=== PATIENT | male | born 1970 | race Caucasian/White ===

== ENCOUNTER 2016-12-29 14:26 | Emergency (ER) | payer OTHER ==
[2016-12-29] MEDS ORDERED: DEXAMETHASONE 10 MG/ML VIAL PO STA (15:33)
[2016-12-29] MEDS ORDERED: CYCLOBENZAPRINE 10 MG TABLET PO STA (15:33)
[2016-12-29] MEDS ORDERED: KETOROLAC 60 MG/2 ML VIAL IM STA (15:33)
--- NOTE | 2016-12-29 15:36 | ED Physician Documentation ---
PD HPI BACK PAIN - Stated complaint Stated Complaint: LOWER BACK INJURY - Chief complaint Chief Complaint: Back Pain - History obtained from History obtained from: Patient, Family - History of Present Illness Timing - onset: Today Timing - duration: Hours (8) Timing - details: Abrupt onset Pain level max: 8 Pain level now: 8 Location: Lower, Right, Left Quality: Pain, Spasm, Sharp, Similar to prior episodes Associated symptoms: No: Fever, Weakness, Numbness, Incontinent of urine, Unable to urinate, Hematuria, Incontinent of stool Improves with: Rest, Meds (motrin at 0700) Worsened by: Movement Contributing factors: No: Trauma, Anticoagulated, Cancer, IVDA Similar symptoms before: Diagnosis (chronic back pain) Recently seen: Not recently seen - Additional information Additional information: states bent over this am and had sharp pain is his lower back. No numbness, tingling, incontinence. Pain increased when his motrin wore off this am. Review of Systems Ten Systems: 10 systems reviewed and negative Constitutional: denies: Fever, Chills Ears: denies: Ear pain Nose: denies: Rhinorrhea / runny nose, Congestion GI: denies: Abdominal Pain, Nausea, Vomiting, Diarrhea Skin: denies: Rash Musculoskeletal: denies: Neck pain Neurologic: denies: Focal weakness, Numbness, Headache, Head injury, LOC PD PAST MEDICAL HISTORY - Past Medical History Past Medical History: Yes GI: GERD Musculoskeletal: Chronic back pain - Past Surgical History Past Surgical History: No - Present Medications Home Medications: Ambulatory Orders Medication Instructions Recorded Confirmed Cyclobenzaprine [Flexeril] 10 mg PO TID PRN #20 tablet 12/29/16 Esomeprazole Magnesium [Nexium] 1 tab DAILY 12/29/16 12/29/16 Hydrocodone/Acetaminophen 1 - 2 each PO Q6H PRN #14 tablet 12/29/16 [Hydrocodon-Acetaminophen 5-325] - Allergies Allergies/Adverse Reactions: Allergies Allergy/AdvReac Type Severity Reaction Status Date / Time No Known Drug Allergies Allergy Verified 12/29/16 14:35 PD ED PE NORMAL - Vitals Vital signs reviewed: Yes - General General: Alert and oriented X 3, No acute distress, Well developed/nourished - HEENT HEENT: Moist mucous membranes - Neck Neck: Supple, no meningeal sign, No bony TTP - Cardiac Cardiac: RRR, Strong equal pulses - Respiratory Respiratory: No respiratory distress, Clear bilaterally - Abdomen Abdomen: Soft, Non tender, Non distended - Back Back: No spinal TTP, Other (paraspinal spasm, low lumbar. no midline tenderness to palpation or percussion) - Derm Derm: Warm and dry - Extremities Extremities: Other (normal bilateral lower extremity patellar and ankle jerk reflexes. Normal great toe extension bilaterally) - Neuro Neuro: Alert and oriented X 3, No motor deficit, No sensory deficit - Psych Psych: Normal mood, Normal affect Results - Vitals Vitals: Vital Signs - 24 hr 12/29/16 12/29/16 12/29/16 14:34 18:55 19:20 Temperature 36.3 C L Heart Rate 93 78 75 Respiratory 18 20 18 Rate Blood Pressure 124/72 O2 Saturation 97 98 97 12/29/16 19:36 Temperature 36.0 C L Heart Rate 70 Respiratory 16 Rate Blood Pressure 112/73 O2 Saturation 100 Oxygen O2 Source Room air - Rads (name of study) L spine xray Radiology: Prelim report reviewed, EMP read contemporaneously, See rad report ( No acute bony abnormality. Old mild wedging and degenerative disk disease thoracolumbar junction. Mild degenerative changes L4-L5 and L5-S1. ) PD MEDICAL DECISION MAKING - ED course Complexity details: reviewed results, re-evaluated patient, considered differential (no cauda equina, no spinal epidural abscess, no fracture, no aortic dissection or evidence of aneursym rupture), d/w patient, d/w family ED course: Patient is a 46-year-old gentleman who presents to the emergency department with acute onset of low back pain. His pain was not improving as expected with pain medication the emergency department, therefore an x-ray was performed which reveals no acute abnormalities. He was then given a dose of morphine and felt better. Will prescribe pain medication for home as well as muscle relaxants. No evidence of cauda equina, epidural abscess or fracture. Patient counseled regarding signs and symptoms for which I believe and urgent re- evaluation would be necessary. Patient with good understanding of and agreement to plan and is comfortable going home at this time This document was made in part using voice recognition software. While efforts are made to proofread this document, sound alike and grammatical errors may occur. Departure - Departure Disposition: 01 Home, Self Care Clinical Impression: Low back strain Qualifiers: Encounter type: initial encounter Qualified Code(s): S39.012A - Strain of muscle, fascia and tendon of lower back, initial encounter Condition: Good Instructions: ED Sprain Strain Lumbar Follow-Up: NURIS JESUS [Primary Care Provider] - Within 3 Days Prescriptions: Cyclobenzaprine [Flexeril] 10 mg PO TID PRN #20 tablet PRN Reason: Spasms Hydrocodone/Acetaminophen [Hydrocodon-Acetaminophen 5-325] 1 - 2 each PO Q6H PRN #14 tablet PRN Reason: pain Comments: Return if you worsen. This should improve over the next few days and if it is not improving your doctor may choose to order an xray or MRI. Do not drink alcohol or drive while on narcotic pain medicine. Note that many narcotic pain relievers also contain tylenol/acetaminophen. Please ensure that your total dose of acetaminophen from all sources does not exceed 3 grams (3000mg) per day. You may constipated on this medication, take a stool softener such as "Colace" twice a day while you are on it. Also recommend a lyvk-brd-kjuywjb laxative such as senna or MiraLAX any day that you do not have a bowel movement. If you received narcotic pain medication in the emergency department, do not drive or operate machinery for the next 24 hours. Discharge Date/Time: 12/29/16 19:36
[2016-12-29] MEDS ORDERED: DEXAMETHASONE 10 MG/ML VIAL ONE (15:48)
[2016-12-29] MEDS ORDERED: KETOROLAC 60 MG/2 ML VIAL ONE (15:48)
[2016-12-29] MEDS ORDERED: CHERRY SYRUP 10 ML UDC PO ONE (15:48)
[2016-12-29] MEDS ORDERED: HYDROcod/ACETAM 5/325 MG TABLET PO STA (16:27)
[2016-12-29] MEDS ORDERED: diazePAM 5 MG TABLET PO STA (16:28)
[2016-12-29] MEDS ORDERED: diazePAM 5 MG TABLET PO ONE (17:01)
[2016-12-29] MEDS ORDERED: HYDROcod/ACETAM 5/325 MG TABLET ONE (17:02)
[2016-12-29] MEDS ORDERED: MORPHINE 2 MG/ML SYRINGE IM STA (18:24)
[2016-12-29] MEDS ORDERED: MORPHINE 2 MG/ML SYRINGE ONE (18:41)
--- NOTE | 2016-12-29 18:53 | XRAY Preliminary Report ---
Exam: XR Lumbar Spine 2 View IMPRESSION: 1. No acute bony abnormality. 2. Old mild wedging and degenerative disk disease thoracolumbar junction. 2. Mild degenerative changes L4-L5 and L5-S1. [facility] SITE ID: [id number]
--- NOTE | 2016-12-29 18:59 | XRAY Report ---
EXAM: LUMBOSACRAL SPINE RADIOGRAPHY EXAM DATE: 12/29/2016 06:05 PM. CLINICAL HISTORY: Low back pain for days. COMPARISONS: None. TECHNIQUE: 2 views. FINDINGS: Alignment: Normal. No spondylolisthesis or scoliosis. Bones: Five hlb-jjk-ytdjkyz lumbar vertebral bodies are present. Old mild wedging T12 and L1. Trabecular and cortical patterns are otherwise intact. Disks: Mild narrowing T12-L1 with tiny osteophytes. Mild narrowing L4-L5 without bony reactive changes. Moderate narrowing L5-S1 without bony reactive changes. Facets: Moderate degenerative changes L4-L5 facets. Sacroiliac Joints: Unremarkable. Normal bilateral hips. Soft Tissues: Normal. The visualized bowel gas pattern is normal. IMPRESSION: 1. No acute bony abnormality. 2. Old mild wedging and degenerative disk disease thoracolumbar junction. 3. Mild degenerative changes L4-L5 and L5-S1. [facility] Referring Provider Line: [phone] SITE ID: [id number]
[2016-12-29 19:45] VITALS: BP 112/73
== END 2016-12-29 19:36 | disposition home or self-care (01) ==
LOC: ED 14:26
DX: S39.012A Strain of muscle, fascia and tendon of lower back, initial encounter (principal); X50.1XXA Overexertion from prolonged static or awkward postures, initial encounter
CPT/HCPCS: 72100; 96372; 99283; 99284; A9270

== ENCOUNTER 2017-01-09 11:49 | Emergency (ER) | payer OTHER ==
[2017-01-09 13:05] LABS: BASOPHILS % (AUTO) 0.4 %; EOSINOPHILS # (AUTO) 0.1 10^3/uL (0.0-0.7); EOSINOPHILS % (AUTO) 0.6 %; HCT - HEMATOCRIT 44.9 % (42.0-52.0); HGB - HEMOGLOBIN 15.3 g/dL (14.0-18.0); LYMPHOCYTES # (AUTO) 2.9 10^3/uL (1.5-3.5); LYMPHOCYTES % (AUTO) 26.7 %; MEAN CORPUSCULAR HEMOGLOBIN 31.3 pg (27.0-31.0); MEAN CORPUSCULAR HGB CONC 34.1 g/dL (32.0-36.0); MEAN CORPUSCULAR VOLUME 91.9 fL (80.0-94.0); MEAN PLATELET VOLUME 8.2 fL (7.4-11.4); MONOCYTES # (AUTO) 0.6 10^3/uL (0.0-1.0); MONOCYTES % (AUTO) 5.3 %; NEUTROPHILS # (AUTO) 7.4 10^3/uL (1.5-6.6); RED BLOOD COUNT 4.88 10^6/uL (4.70-6.10); RED CELL DISTRIBUTION WIDTH 14.3 % (12.0-15.0)
[2017-01-09 13:13] LABS: CALCIUM 9.2 mg/dL (8.5-10.3); CREATININE 0.7 mg/dL (0.6-1.2); POTASSIUM 4.6 mmol/L (3.5-5.0)
--- NOTE | 2017-01-09 15:57 | MRI Preliminary Report ---
Exam: MRI Brain W/O IMPRESSION: 1. Normal noncontrast MRI of the brain. No acute abnormality. 2. Partial opacification/mucous retention cyst laterally in the right frontal sinus. [facility] SITE ID: [id number]
--- NOTE | 2017-01-09 15:59 | MRI Report ---
EXAM: MRI BRAIN WITHOUT CONTRAST EXAM DATE: 01/09/2017 03:00 PM. CLINICAL HISTORY: RIGHT FACIAL/RUE/RLE ANESTHESIA. Symptoms have been present since this morning. COMPARISON: None. TECHNIQUE: Multiplanar, multisequence T1-weighted and fluid-sensitive MR sequences of the brain were performed. Sequences optimized for routine evaluation. Other: None. IV Contrast: None. FINDINGS: Brain Volume: Normal for age. Parenchyma/Dura: No masses, infarcts, or hemorrhage. No significant piper matter or white matter signa l abnormality is appreciated. Ventricles/Cisterns: Normal. No hydrocephalus. Orbits: The globes, optic nerve sheath complex, extraocular muscles, and orbital fat are unremarkable . Sella turcica: The pituitary gland, cavernous sinuses, suprasellar cistern, and optic chiasm are unre markable. IAC: The internal auditory canals and cerebellopontine angle cisterns are symmetric and unremarkable. Vasculature: Normal signal flow void is seen in the major arterial structures at the skull base. Sinuses: Partial opacification is seen laterally in the right frontal sinus with fluid signal intensi ty. The mastoid air cells are clear. Bones: The skull is intact. Other: None. IMPRESSION: 1. Normal noncontrast MRI of the brain. No acute abnormality. 2. Partial opacification/mucous retention cyst laterally in the right frontal sinus. [facility] Referring Provider Line: [phone] SITE ID: [id number]
[2017-01-09 16:14] VITALS: BP 112/82
[2017-01-09] MEDS ORDERED: valACYclovir 500 MG TABLET PO STA (16:21)
[2017-01-09] MEDS ORDERED: valACYclovir 500 MG TABLET ONE (16:33)
--- NOTE | 2017-01-09 16:52 | ED Physician Documentation ---
History of Present Illness - Stated complaint Stated Complaint: R SIDED NUMBNESS - Chief complaint Chief Complaint: Neuro - Additonal information Additional information: Patient is a 46-year-old male without any past medical history who noticed numbness and tingling to the right face while shaving this morning. This numbness and tingling also involves the right hemifacial area including the forehead. He has not had any weakness or difficulty with shaving but also thought he felt a little tingling in the right arm. He denies any weakness or loss of function. He has not had any headache or difficulty in speech. He woke up this way this morning. This patient has no hypertension, diabetes dyslipidemia smoking history any high risk factors that might cause early or premature stroke. He was seen by the base physician who sent him over for evaluation hoping to get a MRI scan of his hand. Review of systems: For pertinent positive and negatives in the review of systems please see the history of present illness, otherwise all other systems have been reviewed and are negative. Dragon disclaimer: Parts of this medical record were created using voice recognition technology. Because of the inherent limitations of this system, occasional same sounding word substitutions do occur and persist despite proofreading. Please read the document for context. PD PAST MEDICAL HISTORY - Past Medical History Cardiovascular: None Respiratory: None Neuro: None Endocrine/Autoimmune: None GI: GERD : None HEENT: None Psych: None Musculoskeletal: Chronic back pain Derm: None - Past Surgical History Past Surgical History: No General: Other - Present Medications Home Medications: Ambulatory Orders Medication Instructions Recorded Confirmed Naproxen 1 tab PO BID 01/09/17 01/09/17 Omeprazole [PriLOSEC] 1 cap PO DAILY 01/09/17 01/09/17 Valacyclovir HCl [Valtrex] 1,000 mg PO BID #14 tablet 01/09/17 - Allergies Allergies/Adverse Reactions: Allergies Allergy/AdvReac Type Severity Reaction Status Date / Time No Known Drug Allergies Allergy Verified 01/09/17 11:55 - Social History Does the pt smoke?: No Smoking Status: Never smoker Does the pt drink ETOH?: No Does the pt have substance abuse?: No - Immunizations Immunizations are current?: Yes PD ED PE NORMAL - General General: Alert and oriented X 3, No acute distress, Well developed/nourished - HEENT HEENT: PERRL, EOMI, Ears normal - Neck Neck: Supple, no meningeal sign, No bony TTP, No adenopathy - Cardiac Cardiac: RRR, No murmur, No gallop, No rub - Respiratory Respiratory: No respiratory distress, Clear bilaterally - Abdomen Abdomen: Normal bowel sounds, Soft, Non tender, Non distended - Male Male : Deferred - Rectal Rectal: Deferred - Back Back: No CVA TTP - Derm Derm: Normal color, Warm and dry, No rash, Other - Extremities Extremities: No deformity, No tenderness to palpate, Normal ROM s pain, No edema - Neuro Neuro: Alert and oriented X 3, director of user experience 2-12 intact, No motor deficit, No sensory deficit Results - Vitals Vitals: Vital Signs - 24 hr 01/09/17 01/09/17 01/09/17 11:52 13:17 16:14 Temperature 36.7 C Heart Rate 79 73 74 Respiratory 18 16 16 Rate Blood Pressure 135/90 H 115/82 H 112/82 H O2 Saturation 98 96 95 Oxygen O2 Source Room air - Labs Labs: Laboratory Tests 01/09/17 01/09/17 13:01 13:01 WBC 11.0 H RBC 4.88 Hgb 15.3 Hct 44.9 MCV 91.9 MCH 31.3 H MCHC 34.1 RDW 14.3 Plt Count 284 MPV 8.2 Neut # 7.4 H Lymph # 2.9 Elliott # 0.6 Eos # 0.1 Baso # 0.0 Absolute Nucleated RBC 0.00 Nucleated RBCs 0.0 Sodium 138 Potassium 4.6 Chloride 103 Carbon Dioxide 28 Anion Gap 7.0 BUN 19 Creatinine 0.7 Estimated GFR (MDRD) 123 Glucose 110 H Calcium 9.2 PD MEDICAL DECISION MAKING - ED course Complexity details: reviewed old records, reviewed results, re-evaluated patient ED course: This patient is a 46-year-old male without any medical history who presents with numbness and tingling to the right upper and lower facial areas. He also has much less significant numbness and tingling to the right arm that starts in the shoulder and goes to all the fingertips. The patient's neurologic exam is completely unremarkable. Going against stroke of the fact that this is a young healthy male without any cerebrovascular risk factors. There is also involvement of the right forward which is more consistent with Munoz's palsy however the findings complaints of numbness in the right arm go against Munoz's palsy. These arm findings are much less severe however than the facial complaint of numbness and tingling. Additionally the patient's neurologic exam is normal and all the symptoms are sensory in nature. We did get a MRI scan of the patient's head which is read by radiology is essentially unremarkable for any evidence of any acute abnormality. Given these findings of a young patient with pure sensory symptoms, negative MRI and some sinus symptoms that are more consistent with a Munoz's like the right forehead numbness and tingling I think this patient's chance of having a stroke is very very low. I have him I will have him watch his symptoms closely, follow-up with his physician, and I will have him initiate a course of Valtrex in case this is early Munoz's palsy. If he develops numbness if he develops weakness in the right hemifacial area then this would be a good finding more consistent with Munoz's. Disposition: To home Clinical impression: 1. 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 Very low risk for CVA Departure - Departure Disposition: 01 Home, Self Care Clinical Impression: Paresthesia, Munoz's palsy Condition: Good Instructions: ED [place] Palsy, ED Paraesthesias Follow-Up: NURIS JESUS [Primary Care Provider] - Prescriptions: Valacyclovir HCl [Valtrex] 1,000 mg PO BID #14 tablet
== END 2017-01-09 17:16 | disposition home or self-care (01) ==
LOC: EDUNIT# → ED 11:49
DX: R20.0 Anesthesia of skin (principal)
CPT/HCPCS: 36415; 70551; 80048; 85025; 93005; 99283; 99284; A9270

== ENCOUNTER 2018-01-25 13:51 | Outpatient (CLI) | payer OTHER | END 2018-01-25 13:52 | disposition home or self-care (01) | LOC: SC 13:51 | PROVIDERS: ATTEND Internal Medicine Pulmonary Disease | DX: G47.33 Obstructive sleep apnea (adult) (pediatric) (principal) | CPT/HCPCS: 99203; 99212 ==

== ENCOUNTER 2018-07-26 13:42 | Outpatient (CLI) | payer OTHER | END 2018-07-26 13:43 | disposition home or self-care (01) | LOC: DI 13:42 | PROVIDERS: ATTEND Physician Assistant | DX: I30.9 Acute pericarditis, unspecified (principal); I51.7 Cardiomegaly | CPT/HCPCS: 93306 ==

== ENCOUNTER 2018-11-01 11:45 | Outpatient (CLI) | payer OTHER ==
--- NOTE | 2018-11-01 16:02 | CARDIAC PROCEDURE NOTE ---
DATE OF SERVICE: 11/01/2018 Physician: Adeola Raines MD, [facility] INDICATION: Chest pain. CARDIAC RISK FACTORS: Family history of early heart disease (in his father at age 53), overweight, male gender, cigarette smoker. PROCEDURE: After signing informed consent, the patient underwent a Cale- protocol stress test with nuclear myocardial perfusion imaging. Resting heart rate: 90. Peak heart rate: 164 (94% predicted maximum heart rate for age). Resting blood pressure: 120/75. Peak blood pressure: 168/80. The patient exercised for 6 minutes and 40 seconds on a Cale-protocol treadmill stress test. He achieved a peak heart rate of 164 (94% PMHR) and 8.1 METs. The patient had mild-moderate shortness of breath with exercise, no chest pain during the entire test. Oxygen saturation was 95% at peak on room air. RESTING ELECTROCARDIOGRAM: Normal sinus rhythm, early R/S transition, inverted T waves in leads V1 through V3. ELECTROCARDIOGRAM AT PEAK: new ST segment depressions of 0.5 mm in V2 and V3. SUMMARY 1. Abnormal resting electrocardiogram. 2. Borderline significant electrocardiogram changes are present to suggest ischemia. 3. Nuclear images are reported separately. cc: Xander Matthews MD TD: 11/01/2018 15:46 MTDD
--- NOTE | 2018-11-01 16:33 | Nuclear Medicine Report ---
Reason: CHEST PAIN, PALPITATIONS Procedure Date: 11/01/2018 Accession Number: [id number] / [id number] Procedure: NM - Myocardial Perfusion STR/RST CPT Code: FULL RESULT: EXAM: SINGLE-ISOTOPE EXERCISE STRESS TEST. SINGLE-ISOTOPE AND ONE-DAY REST/STRESS MYOCARDIAL PERFUSION SCANS WITH TOMOGRAPHIC IMAGING, QUANTITATIVE ANALYSIS, WALL MOTION ANALYSIS AND CALCULATION OF EJECTION FRACTION. EXAM DATE: 11/01/2018 04:00 PM. CLINICAL HISTORY: CHEST PAIN, PALPITATIONS. COMPARISON: None available. TECHNIQUE: A rest myocardial perfusion scan was done with tomography after the intravenous administration of 10.5 mCi Tc-99m sestamibi. After an appropriate delay, a treadmill exercise stress was performed according to department protocol. The patient exercised for 6 minutes and 40 seconds. The maximum heart rate was 164 bpm, which was 94% of the maximum predicted heart rate of 174 bpm. At approximately peak heart rate, 44.2 mCi of Tc-99m sestamibi was injected for stress myocardial perfusion scan. Motion correction was applied when appropriate. Gated tomographic images were obtained for wall motion analysis and computation of left ventricular ejection fraction. FINDINGS: On visual analysis, no fixed or reversible perfusion defects are evident. Computer analysis. Summed stress score 2 Summed rest score 0 Summed difference score 2 Wall motion analysis demonstrates no focal wall motion abnormality. The left ventricular end-diastolic volume is 61 cc. The left ventricular end-systolic volume is 13 cc. The left ventricular ejection fraction is calculated to be 78%. IMPRESSION: 1. On visual analysis, no convincing significant fixed or reversible perfusion defects. 2. Normal left ventricular ejection fraction of 78%. 3. Normal segmental and global wall motion. 4. Normal left ventricular cavity size, no change with stress. 5. Based on computer analysis, normal study with mild ischemia. Please correlate findings with stress ECG tracings and procedure notes. [facility]
== END 2018-11-01 11:46 | disposition home or self-care (01) ==
LOC: DI 11:45
PROVIDERS: ATTEND Internal Medicine Cardiovascular Disease
DX: I25.9 Chronic ischemic heart disease, unspecified (principal); R07.89 Other chest pain; R00.2 Palpitations; R94.31 Abnormal electrocardiogram [ECG] [EKG]; F17.210 Nicotine dependence, cigarettes, uncomplicated; E66.3 Overweight; Z82.49 Family history of ischemic heart disease and other diseases of the circulatory system
CPT/HCPCS: 78452; 93017; A9500; 93016; 93018

== ENCOUNTER 2019-02-19 14:15 | Outpatient (CLI) | payer OTHER ==
--- NOTE | 2019-02-19 15:17 | SLEEP CARE CONSULTATION ---
Information from patient questionnaire entered by Sara Knapp. I have reviewed and concur with the information entered by Sara Knapp. This document represents the service I personally performed and the decisions made by me, Zurdo Sage MD, [facility]. History of Present Illness Previous diagnosis: Moderate, Obstructive Sleep Apnea-Hypopnea Syndrome AHI: 18.2 Reason for CPAP/BiPAP follow up: annual Equipment type: CPAP Equipment obtained from: [employer] Mask style: Nasal Prior sleep studies: Yes Year and Where: 2016 [facility] HPI additional information: HPI: Mr. Moreno was diagnosed to have moderate obstructive sleep apnea- hypopnea syndrome and returns today for follow up of CPAP therapy. The patient purchased the device from [employer] and was fitted with a nasal mask. He uses the device nightly and all through the night. The compliance report shows that he uses the device 180 nights out of the past 180 nights, averaging 7.6 hours a night. He complains of no particular problem with the device such as soreness on the face, dry nose, epistaxis, nasal congestion or headache. He thinks that the pressure of 5 - 14 cmH2O is comfortable. On the CPAP therapy he notices improvement in his sleep quality, and that he wakes up feeling fresher in the morning and more awake/alert during the day. His notices no snore at all. [place] Sleepiness Scale score is 3. The average residual AHI is 1.7; and average leak 5.0 minutes. The 90th percentile pressure is 10.8 cmH2O. CPAP Compliance Data - Data Reviewed with Patient Average duration of nightly device use: 7H 34M Compliance rate %: 100 Current pressure setting (cmH2O): 5-14 Subjective Initial [place] Sleepiness Scale score: 0 (ON CPAP BEFORE ESTABLISHED) Allergies and Home Medications Drug allergies reviewed: Yes Home medication list reviewed: Yes Review of Systems Review of systems same as previous: Yes Physical Exam Height: 5 ft 9.5 in Weight (kg): 218 lb Weight change since last visit: -18 Body Mass Index: 31.7 BMI Classification: Class 1 Impression and Plan IMPRESSION: 1. Obstructive Sleep Apnea-Hypopnea Syndrome, moderate, with the patient continuing to do well on nasal CPAP therapy. He has excellent compliance and significant clinical benefits. The current pressure appears effective and comfortable. Overall, he is very satisfied with treatment and plans to continue with it long-term. No adjustment is necessary today. PLAN: 1. Continue with autoCPAP set at 5 - 14 cm H2O. 2. Try to lose more weight 3. Turn off the ramp if he feels that the machine starts too low. 4. Try the new [employer] N30i mask. 5. Return in one year for follow up or earlier if there is any problem with the treatment. This visit is time-based and I spent 15 minutes with the patient and more than 50% of the time was spent counseling the patient. I spent 100% of this [15][30] minute visit face to face with the patient with greater than 50% of this was spent time counseling the patient and coordination of care.
== END 2019-02-19 14:16 | disposition home or self-care (01) ==
LOC: SC 14:15
PROVIDERS: ATTEND Internal Medicine Pulmonary Disease
DX: G47.33 Obstructive sleep apnea (adult) (pediatric) (principal)
CPT/HCPCS: 99212; 99213